=== PATIENT | male | born 1995 | race Caucasian/White ===

== ENCOUNTER 2017-12-19 02:32 | Emergency (ER) | payer OTHER ==
[~2017-12-19] VITALS: Ht 177.8 cm; Wt 84.1 kg
[2017-12-19 02:35] VITALS: BP 139/88
== END 2017-12-19 04:45 ==
LOC: ER 02:33
DX: S81.802A Unspecified open wound, left lower leg, initial encounter (principal); V29.9XXA Motorcycle rider (driver) (passenger) injured in unspecified traffic accident, initial encounter; Y93.55 Activity, bike riding; Y92.410 Unspecified street and highway as the place of occurrence of the external cause; Y99.9 Unspecified external cause status
CPT/HCPCS: 99283; A6446; A6449

== ENCOUNTER 2024-04-06 09:37 | Outpatient (CLI) | payer OTHER ==
[2024-04-06] MEDS ORDERED: iohexol 300mg/ml 100ml inj. ONE (09:46)
== END 2024-04-06 23:59 | disposition home or self-care (01) ==
LOC: RAD 09:37
PROVIDERS: ATTEND Family Medicine
DX: K42.9 Umbilical hernia without obstruction or gangrene (principal); K40.90 Unilateral inguinal hernia, without obstruction or gangrene, not specified as recurrent
CPT/HCPCS: 74160; Q9967